=== PATIENT | male | born 1960 | race Caucasian/White ===

== ENCOUNTER 2025-08-01 09:04 | Emergency (ER) | payer OTHER ==
[~2025-08-01] VITALS: Ht 185.4 cm; Wt 83.9 kg
[~2025-08-01 09:04] MED LIST: AVEIDA 1%-1% GE30 GM; B-12500 MC2 PO; Magnesium 300300 MG PO; OXAYDO5 M1 PO; OXYC5 PO; PANT40 PO; PANTOPRAZOLE SO40 M2 PO; Vitamin D1000 UNI1
[2025-08-01 09:49] LABS: Source, Urine Clean Catch
[2025-08-01 09:56] LABS: BASOPHILS ABSOLUTE AUTO 0.03 K/mm3 (0.00-0.23); BASOPHILS PERCENT AUTO 0 % (0-2); EOSINOPHILS ABSOLUTE AUTO 0.04 K/mm3 (0.00-0.68); EOSINOPHILS PERCENT AUTO 0 % (0-6); Hematocrit 33.1 % (37.0-53.0); Hemoglobin 10.8 g/dL (13.5-17.5); IMMATURE GRAN ABSOLUTE AUTO 0.09 K/mm3 (0.00-0.10); IMMATURE GRAN PERCENT AUTO 1 % (0-1); LYMPHOCYTES ABSOLUTE AUTO 0.56 K/mm3 (0.84-5.20); LYMPHOCYTES PERCENT AUTO 4 % (21-46); MONOCYTES ABSOLUTE AUTO 1.38 K/mm3 (0.16-1.47); MONOCYTES PERCENT AUTO 9 % (4-13); Mean Corpuscular HGB Conc 32.6 g/dL (31.5-36.5); Mean Corpuscular Volume 86 fL (80-100); NEUTROPHILS ABSOLUTE AUTO 12.75 K/mm3 (1.96-9.15); NEUTROPHILS PERCENT AUTO 86 % (41-73); NRBC ABSOLUTE 0.00 K/mm3 (0.00-0.02); NRBC Auto 0.0 /100 WBC (0.0-0.2); Platelet Count 329 K/mm3 (150-400); RDW Coefficient Variation 16.4 % (11.7-14.2); RDW Standard Deviation 50.8 fL (35.1-46.3)
[2025-08-01 09:58] LABS: Bilirubin, Urine Neg (Neg); Color, Urine Yellow (P-Yellow); Glucose Qualitative, Urine Neg (Neg); Ketones, Urine 1+ (Neg); Leukocyte Esterase, Urine Neg (Neg); Protein, Urine 1+ (Neg); Specific Gravity, Urine 1.015 (1.003-1.022); Urobilinogen, Urine 4+ (Normal)
[2025-08-01 10:29] LABS: Alanine Aminotransfer (ALT/SGP 16.0 U/L (12-78); Albumin, Blood 2.1 g/dL (3.4-5.0); Albumin/Globulin Ratio 0.5 (0.8-1.8); Anion Gap 11.0 mmol/L (3-11); Aspartate Aminotrans (AST/SGOT 61.0 U/L (12-37); Bilirubin, Total 1.0 mg/dL (0.1-1.0); Blood Urea Nitrogen 9.0 mg/dL (8-24); CO2, Blood 25.0 mmol/L (21-32); Calcium, Blood 9.4 mg/dL (8.5-10.1); Chloride, Blood 95.0 mmol/L (98-108); Creatinine, Blood 0.55 mg/dL (0.60-1.20); Globulin, Blood 4.4 g/dL (2.2-4.0); Glucose, Blood 127.0 mg/dL (70-99); Potassium, Blood 4.1 mmol/L (3.5-5.5); Sodium, Blood 127.0 mmol/L (136-145); Total Protein, Blood 6.5 g/dL (6.4-8.2)
[2025-08-01] MEDS ORDERED: NS 1,000 ML IV SCH (10:55)
[2025-08-01 12:20] VITALS: BP 97/50
== END 2025-08-01 12:30 | disposition home or self-care (01) ==
LOC: ER 09:04
PROVIDERS: Student in an Organized Health Care Education/Training Program
DX: E87.1 Hypo-osmolality and hyponatremia (principal); T66.XXXA Radiation sickness, unspecified, initial encounter; C15.9 Malignant neoplasm of esophagus, unspecified; C77.3 Secondary and unspecified malignant neoplasm of axilla and upper limb lymph nodes; D64.9 Anemia, unspecified; M25.512 Pain in left shoulder; G89.29 Other chronic pain; Y84.2 Radiological procedure and radiotherapy as the cause of abnormal reaction of the patient, or of later complication, without mention of misadventure at the time of the procedure; M54.2 Cervicalgia
CPT/HCPCS: 70450; 80053; 85025; 93005; 93010; 96360; 99285-25; J7030

== ENCOUNTER → 2025-08-06 | Outpatient (CLI) | payer OTHER | END | disposition home or self-care (01) | LOC: LAB 17:46 → LAB SHORT 17:46 | DX: C79.51 Secondary malignant neoplasm of bone (principal); S42.392D Other fracture of shaft of left humerus, subsequent encounter for fracture with routine healing | CPT/HCPCS: 87070; 87075; 87102; 87116; 87205 ==

== ENCOUNTER 2025-08-23 05:39 | Emergency (ER) | payer OTHER ==
[~2025-08-23] VITALS: Ht 185.4 cm; Wt 77.1 kg
[2025-08-23 06:17] VITALS: BP 90/76
== END 2025-08-23 06:30 | disposition home or self-care (01) ==
LOC: ER 05:39
DX: T85.698A Other mechanical complication of other specified internal prosthetic devices, implants and grafts, initial encounter (principal)
CPT/HCPCS: 99282